=== PATIENT | female | born 1980 | race Hispanic/Latino ===

== ENCOUNTER 2019-07-13 15:53 | Emergency (ER) | payer MEDICARE, OTHER ==
[2019-07-14 11:05] LABS: SARS-CoV-2 MS2 Positive; SARS-CoV-2 N Gene Positive; SARS-CoV-2 S Gene Positive; SARS-CoV-2 orf1ab Positive
== END 2019-07-13 16:58 | disposition home or self-care (01) ==
LOC: ERS 15:53
DX: U07.1 COVID-19 (principal); R50.9 Fever, unspecified
CPT/HCPCS: 99283; U0003; 87635

== ENCOUNTER 2020-07-11 13:29 | Outpatient (CLI) | payer MEDICARE | END 2020-07-11 13:30 | disposition home or self-care (01) | LOC: BICMAMMO 13:29 | PROVIDERS: ATTEND Nurse Practitioner Women's Health | DX: Z12.31 Encounter for screening mammogram for malignant neoplasm of breast (principal) | CPT/HCPCS: 77063; 77067 ==

== ENCOUNTER 2024-08-25 21:54 | Emergency (ER) | payer OTHER ==
[2024-08-25] MEDS ORDERED: Ketorolac Tromethamine 30 MG (1 mL) VIAL ONE (23:32)
[2024-08-25 23:40] LABS: #Basophils 0.03 10x3/uL (0.0-0.2); #Eosinophils 0.13 10x3/uL (0.0-0.7); #Monocytes 0.66 10x3/uL (0.11-0.59); #Neutrophils 4.82 10x3/uL (1.40-6.50); %Basophils 0.4 % (0.0-1.0); %Eosinophils 1.7 % (0.0-10.0); %Lymphocytes 24.3 % (21.0-51.0); %Monocytes 8.8 % (0.0-10.0); %Neutrophils 64.5 % (42.0-75.0); Hematocrit 40.9 % (36.0-47.0); Hemoglobin 14.0 g/dL (12.0-16.0); Mean Corpuscular Hemoglobin 29.2 pg (27.0-31.0); Mean Corpuscular Volume 85.4 fL (78.0-98.0); Platelet Count 175 10x3/uL (130-400); Red Blood Cell (RBC) Count 4.79 mill/uL (4.20-5.40); White Blood Cell (WBC) Count 7.48 10x3/uL (4.8-10.8)
[2024-08-25 23:59] LABS: Troponin I Less than 0.010 ng/mL (< 0.028)
[2024-08-26 00:03] LABS: ALT (SGPT) 14 U/L (Less than 34); AST (SGOT) 35 U/L (11-34); Albumin 3.8 g/dL (3.1-4.5); Alkaline Phosphatase 106 U/L (40-110); Anion Gap 15 mmol/L (10-20); BUN (Urea Nitrogen) 13 mg/dL (7.0-18.7); Bilirubin, Total 0.4 mg/dL (0.3-1.2); Calc. Creatinine Clearance 0 mL/min (70-130); Calcium 8.6 mg/dL (7.8-10.44); Carbon Dioxide 19 mmol/L (22-29); Chloride 107 mmol/L (98-107); Globulin 4.3 g/dL (2.4-3.5); Glucose 89 mg/dL (70-105); Potassium 5.0 mmol/L (3.5-5.1); Sodium 136 mmol/L (136-145)
[2024-08-26 03:29] LABS: INR-International Normal Ratio 1.2; Prothrombin Time 15.5 sec (12.0-14.7)
[2024-08-26 03:30] LABS: PTT 77.4 sec (22.9-36.1)
[2024-08-26] MEDS ORDERED: Heparin 5,000 UNITS/ML VIAL ONE (03:33)
[2024-08-26] MEDS ORDERED: Iopamidol-370 76% 500 ML MDV (1 ML CHARGE) ONE (13:04)
== END 2024-08-26 04:48 | disposition short-term general hospital (02) ==
LOC: ERS 21:54
DX: I26.09 Other pulmonary embolism with acute cor pulmonale (principal); Q23.81 Bicuspid aortic valve; Z55.6 Problems related to health literacy
CPT/HCPCS: 71045; 71275; 80053; 84484; 84702; 85025; 85610; 85730; 93005; 96365; 96375; J1644; J1885; J2919; J7620; Q9967